=== PATIENT | female | born 1990 | race Caucasian/White ===

== ENCOUNTER 2018-01-22 17:23 | Emergency (ER) | payer MEDICAID, SELFPAY ==
[2018-01-22 17:24] VITALS: BP 144/88; PULSE 130; RESP 18; TEMP 37.3; O2SAT 100; BMI 27.1
[2018-01-22] MEDS: Ondansetron 4 MG/2 ML Vial IV (20:03)
[2018-01-22] MEDS: Dicyclomine 10 MG Capsule 20 MG PO (20:03)
[2018-01-22 20:39] LABS: Absolute Lymphocyte Count 2.53 X10^3/ul (0.83-4.51); Absolute Neutrophil Count 8.5 X10^3/uL (2.0-7.7); Basophil# 0.02 X10^3/uL; Basophil% 0.2 % (0-1); Eosinophil# 0.22 X10^3/uL; Eosinophils% 1.7 % (0-5); Hematocrit 41.9 % (37-47); Hemoglobin 13.6 g/dl (12.0-15.0); Lymphocyte # 2.53 X10^3/ul (4.0); Lymphocyte % 20.1 % (19-41); Mean Corp Hgb Conc 32.5 g/gl (32-36); Mean Corpuscular Hgb 30.5 pg (27.0-32.0); Mean Corpuscular Volume 93.9 fL (81-99); Mean Platelet Vol. 10.2 fl (6.2-12.0); Monocyte# 1.26 X10^3/uL; Neutrophil # 8.54 X10^3/uL (2.7-7.7); Neutrophil % 67.8 % (47-70); Platelet Count 247 K/mm3 (150-450); RBC Distribution Width CV 12.6 % (11.6-14.6); RBC Distribution Width SD 42.9 fl (35.1-43.9); Red Blood Count 4.46 M/mm3 (4.2-5.4); White Blood Count 12.6 K/mm3 (4.4-11.0)
[2018-01-22 20:41] LABS: POSITIVE COUNT NO; POSITIVE DIFFERENTIAL NO; POSITIVE MORPHOLOGY NO
[2018-01-22 20:46] LABS: AST(SGOT) 8 U/L (15-37); Alanine Aminotransfer ALT/SGPT 13 U/L (13-56); Albumin, Serum 3.6 g/dL (3.2-5.0); Alkaline Phosphatase 50 U/L (45-117); Bilirubin, Direct 0.09 mg/dL (0.00-0.30); Globulin 3.9 g/dL (2.2-4.2); Lipase 157 U/L (73-393); Protein, Total 7.5 g/dL (6.4-8.2)
[2018-01-22 20:50] LABS: Pregnancy, Serum, hCG Quali. NEGATIVE Negative (0-9 Nonpreg)
--- NOTE | 2018-01-22 21:12 | ED.DCSUM_ITS ---
- ER Visit Summary Date of Service: 01/22/18 Chief Complaint: My liver hurts History of Present Illness: The patient is a 27 F with right upper quadrant pain and states her liver hurts. Pain is been constant for 3 weeks and described as sharp. She denies food intolerance. She denies shortness of breath, difficulty breathing, cough or pleuritic chest pain. She denies any chest discomfort of any type, palpitations or rapid heart rate. She denies orthopnea or PND. She denies leg pain, swelling or discoloration. She denies history of biliary disease. She denies dysuria, frequency, urgency or hematuria. She denies any history of trauma. She denies rash or any skin lesions. She complains of subjective fever. She denies chills or night sweats. She did have an ectopic November 25. She was informed to refrain from sexual activity for 6-8 weeks, which she did not. She does not use any form of control. Review of systems otherwise negative, please read written note. Physical Examination: Blood pressure is 144/88. Heart rate is 130. She appears in no distress. Head is atraumatic normocephalic. Pupils are equal round reactive. Extraocular muscles are intact. TMs are pearly white with landmarks noted. Nares patent with no drainage. Posterior pharynx without erythema or exudate. Uvula is midline. There is no dysphonia or dysphasia. Trachea is midline. There is no stridor with auscultation of the neck. Heart is regular without murmur, gallop or rub. S1 and S2 are normal. Lungs are clear to auscultation with good movement of air bilaterally. Abdomen is remarkable for tenderness right upper quadrant without distraction. She reported discomfort when I placed my stethoscope on her abdomen. There are no skin lesions to suggest herpes varicella-zoster. She has no CVA tenderness noted. There is no evidence of umbilical or inguinal hernia. There is no asymmetry, swelling, discoloration, leg vein distention, palpable cords or tenderness along the distribution of the deep venous system. Neuro exam is nonfocal. Test Results: Lantus 12.8 thousand with no shift. Hepatic and lipase are normal. Serum test was negative. Emergency Department Course and Treatment: Since patient complains of pain right upper quadrant hepatic, lipase and CBC was obtained. Because she is sexually active and is not using for control test was obtained. Treatment Plan: Patient's workup is negative and she appears in no distress and has pain out of proportion to placement of my stethoscope on her abdomen plan is to discharge. Disposition: To home Impression:/Acute/subacute right upper quadrant abdominal pain unknown etiology Sinus tachycardia triage This note was generated with [employer] dictation software. It may contain incorrect words, spelling, and punctuation that were not noted in review of the chart prior to signing ED Disposition - Plan for ED Patient: Disposition: Home or Assisted Living Chief Complaint: General Illness Instructions: ED Abdominal Pain Unkn Cause Referrals: Edyta Hussein [Primary Care Provider] - 3-5 Days if not improving
[2018-01-22 21:28] VITALS: BP 126/78; PULSE 96; O2SAT 100
[2018-01-22 21:29] VITALS: BP 126/78; PULSE 97; O2SAT 99
== END 2018-01-22 21:31 | disposition home or self-care (01) ==
PROVIDERS: Emergency Provider Emergency Medicine
DX: R10.11 Right upper quadrant pain (principal); R00.0 Tachycardia, unspecified; R11.0 Nausea; Z87.59 Personal history of other complications of pregnancy, childbirth and the puerperium; Z72.0 Tobacco use
CPT/HCPCS: 80076; 83690; 84703; 85025; 96374; 99285; A4216; J2405

== ENCOUNTER 2018-08-03 10:50 | Emergency (ER) | payer MEDICAID, SELFPAY ==
[2018-08-03 10:51] VITALS: BP 111/76; PULSE 103; RESP 18; TEMP 36.6; O2SAT 98; BMI 23.6
--- NOTE | 2018-08-03 11:04 | EKG12_ITS ---
Test Reason : SOB Blood Pressure : / mmHG Vent. Rate : 085 BPM Atrial Rate : 085 BPM P-R Int : 128 ms QRS Dur : 090 ms QT Int : 382 ms P-R-T Axes : 073 076 065 degrees QTc Int : 454 ms Normal sinus rhythm with sinus arrhythmia Normal ECG Confirmed by NEYMAR JOHNSON, CAITIE ([id number]), editor book ODELL BRISENO ([id number]) on 08/06/2018 2:58:53 PM Referred By: MARIFER Confirmed By:CAITIE BLACKMON MD
--- NOTE | 2018-08-03 11:04 | RAD_ITS ---
STUDY: X-RAY CHEST REASON FOR EXAM: Female, 28 years old. Cough, congestion, ear pain, pain with breathing, body aches. TECHNIQUE: PA and lateral chest COMPARISON: None. FINDINGS: The lungs are clear and expanded. Normal cardiomediastinal silhouette, josh and pleural margins. No acute osseous or upper abdominal process. RAD/Chest PA and Lateral IMPRESSION: No acute cardiopulmonary process. No convincing evidence of acute pneumonia. Electronically Signed: Patricio Oliver, at 11:59 EDT Tel , Service support ,
[2018-08-03 11:11] VITALS: PULSE 101; RESP 18
[2018-08-03] MEDS: Ipratropium/Albuterol Sulfate 3 ML AMPUL.NEB INHALATION (11:11)
[2018-08-03] MEDS: 0.9% Normal Saline 1,000 ML 999 ML IV (11:27)
[2018-08-03] MEDS: MethylPREDNISolone 125 MG/2 ML Vial IV (11:27)
[2018-08-03] MEDS: Ketorolac 30 MG/ML Syringe IV (11:27)
[2018-08-03 11:28] VITALS: O2SAT 100
[2018-08-03 11:42] LABS: Absolute Lymphocyte Count 2.61 X10^3/ul (0.83-4.51); Absolute Neutrophil Count 4.1 X10^3/uL (2.0-7.7); Basophil# 0.01 X10^3/uL; Basophil% 0.1 % (0-1); Eosinophil# 0.12 X10^3/uL; Eosinophils% 1.6 % (0-5); Hematocrit 41.3 % (37-47); Lymphocyte # 2.61 X10^3/ul (4.0); Lymphocyte % 35.3 % (19-41); Mean Corp Hgb Conc 33.9 g/gl (32-36); Mean Corpuscular Hgb 31.2 pg (27.0-32.0); Mean Platelet Vol. 10.1 fl (6.2-12.0); Monocyte# 0.51 X10^3/uL; Monocyte% 6.9 % (0-10); Neutrophil # 4.13 X10^3/uL (2.7-7.7); POSITIVE COUNT NO; POSITIVE DIFFERENTIAL NO; POSITIVE MORPHOLOGY NO; Platelet Count 309 K/mm3 (150-450); RBC Distribution Width CV 11.6 % (11.6-14.6); RBC Distribution Width SD 39.1 fl (35.1-43.9); Red Blood Count 4.49 M/mm3 (4.2-5.4); White Blood Count 7.4 K/mm3 (4.4-11.0)
[2018-08-03] MEDS: Acetaminophen 500 MG Tablet 1000 MG PO (12:16)
--- NOTE | 2018-08-03 12:51 | ED.DCSUM_ITS ---
- ER Visit Summary Date of Service: 08/03/18 Chief Complaint: Cough and shortness of breath History of Present Illness: The patient is a 28 F who goes to the [facility]. She reports that he had a cough that began approximate 1 week ago. Is productive green sputum without blood. She reports that she was placed on Augmentin 5 days ago and has not gotten relief from this. She was also sent home with an inhaler. She reports that this does help with her wheezing and shortness of breath, but this is transient. Patient complains of subjective fever and chills. She denies sore throat. She reports she has chest pain with coughing only. She reports is been nausea and vomited 5 times altogether. She has not vomited today. No diarrhea. No abdominal pain. She reports that she has a headache that stated 10 severity. She does have a history of similar headaches. Physical Examination: Vitals: Stable. Afebrile. General: Well-nourished and well-developed. Head: Normocephalic atraumatic. HEENT: Posterior oropharyngeal erythema. No tonsillar exudate or enlargement. No peritonsillar abscess. Neck: Supple, no lymphadenopathy. No JVD. Nontender. Cardiovascular: Regular rate and rhythm. No murmurs. Respiratory: No respiratory distress. Mild wheezing bilaterally with decreased air movement. Abdominal: Soft, nontender, nondistended, normal bowel sounds. No guarding, rebound, or peritoneal signs. Back: Nontender. Extremities: Nontender, no edema. Skin: Normal color, no rash. Neurologic: Alert and oriented ?3. Cranial nerves II through XII are intact. Normal strength and sensation. Psych: Normal affect. Test Results: Chest x-ray is normal. EKG is sinus at [address] changes. CBC is normal. Chem-7 is more for sodium 135 and chloride 108. Parents test is negative. Emergency Department Course and Treatment: Patient was treated albuterol Atrovent aerosols. She was given a dose of Solu-Medrol and Toradol IV. She was given Tylenol p.o. She is resting comfortably. Treatment Plan: Patient will be discharged to 5-day burst of prednisone. Instructed to follow-up the vital instructions clinic in 3-5 days if not improving. Return to the emergency department for any worsening symptoms. Disposition: To home in improved and stable condition. Impression: 1. URI. 2. Bronchospasm. 3. Tobacco abuse. This note was generated with [employer] dictation software. It may contain incorrect words, spelling, and punctuation that were not noted in review of the chart prior to signing ED Disposition - Plan for ED Patient: Chief Complaint: Shortness of Breath Instructions: ED Upper Resp Infec Abx Tx Prescriptions: Prednisone [Deltasone] 40 mg PO DAILY #10 tablet Referrals: Edyta Hussein [Primary Care Provider] - 1-2 Days if not improving
[2018-08-03 12:57] LABS: Anion Gap 5 (5-15); BUN 11 mg/dL (7-18); BUN/Creat Ratio 16.5 RATIO (10-20); Calcium,Total 8.8 mg/dL (8.5-10.1); Chloride 102 mmol/L (98-107); Creatinine, Serum 0.67 mg/dL (0.55-1.02); EST Glomerular Filtration Rate 111 mL/min (>60); Est Glom Filt Rate - Afr Amer 135 mL/min (>60); Estimated Creatinine Clearance 88.99 ml/min; Glucose 108 mg/dL (74-106); Potassium 4.1 mmol/L (3.5-5.1); Sodium Level 135 mmol/L (136-145)
[2018-08-03 13:23] LABS: Pregnancy, Serum, hCG Quali. NEGATIVE Negative (0-9 Nonpreg)
[2018-08-03 13:30] VITALS: PULSE 86; RESP 16; O2SAT 95
[2018-08-03] MEDS: predniSONE 20 MG Tablet 40 MG PO (13:44)
[2018-08-03 13:47] VITALS: BP 101/69; PULSE 91; RESP 16; O2SAT 98
== END 2018-08-03 13:48 | disposition home or self-care (01) ==
LOC: ED 11:08
PROVIDERS: Emergency Provider Emergency Medicine
DX: J06.9 Acute upper respiratory infection, unspecified (principal); J98.01 Acute bronchospasm; F17.200 Nicotine dependence, unspecified, uncomplicated; R11.2 Nausea with vomiting, unspecified
CPT/HCPCS: 71046; 80048; 84703; 85025; 93005; 94640; 96361; 96374; 96375; 99285; J7030; A4216

== ENCOUNTER 2025-01-16 05:42 | Day surgery (SDC) | payer BC, SELFPAY ==
--- NOTE | 2025-01-09 17:39 | HP.PCM_ITS ---
History and Physical Date of Admission: 01/16/25 HPI: The patient is a 34 year old female presenting for pre-operative visit. She is scheduled for LEEP, for HPV 16 and KAREN 3 on 01/16/25. Procedure discussed along with risks, benefits and complications. Other alternatives discussed for management. Consent form signed? Yes. ? ? PAST MEDICAL HISTORY PAST MEDICAL HISTORYDiagnosisDate?Hepatitis A003/24/2019?Hepatitis C003/23/2019?Hepatitis-C??HGSIL (high grade squamous intraepithelial lesion) on Pap smear of [id number]/16/2024?Pap smear abnormality of cervix/human papillomavirus (HPV) [id number]/11/2024 ? ? PAST SURGICAL HISTORY PAST SURGICAL HISTORYProcedureLateralityDate? DELIVERY ONLY?2006?DENTAL SURGERY HX?2012?tubes placed due to an abscess tooth?OB-C SECTION INSTRUMENT TRAY???TREAT ECTOPIC PREG,ABD PREG?2007 ? ? ? CURRENT MEDICATIONS Current Outpatient MedicationsMedicationSigDispenseRefill?lamoTRIgine (LAMICTAL) 25 mg tabletTake 1 tablet by mouth once daily.30 tablet1?citalopram (CELEXA) 20 mg tabletTake 1 tablet by mouth once daily.30 tablet2?ALPRAZolam (XANAX) 0.25 mg tabletTake 1 tablet by mouth once daily as needed for up to 30 days.10 tablet0?QUEtiapine (SEROQUEL) 100 mg tabletTake 1 tablet by mouth daily at bedtime.30 tablet2?No current facility-administered medications for this visit. ? ? ALLERGIES: Depakote [Divalproex], Doxycycline, and Trazodone ? PERSONAL HISTORY: SOCIAL HISTORY Social History?Tobacco Use?Smoking status:Former??Current packs/day:0.00??Average packs/day:0.5 packs/day for 10.0 years (5.0 ttl pk- yrs)??Types:Cigarettes??Start date:2009??Quit date:2019??Years since quittin.1?Smokeless tobacco:Never?Tobacco comments:??Vapes currentlyVaping Use?Vaping status:Some Days?Substances:NicotineSubstance Use Topics?Alcohol use:No?Drug use:Not Currently??Types:Heroin??Comment: last used September 2018 ? FAMILY HISTORY: FAMILY HISTORY FAMILY HISTORY ProblemRelationAge of Onset?Cervical CancerMother?? early 20's ?HypertensionMother??HypertensionMaternal Grandmother??Cervical CancerMaternal Grandmother??Breast CancerPaternal Grandmother??other (lymphatic cancer)Paternal Grandmother??Heart AttackPaternal Grandfather? ? ? REVIEW OF SYMPTOMS: ? PHYSICAL EXAMINATION: ? VITALS: Blood pressure 96/58, pulse 68, resp. rate 16, height 154.9 cm (5' 1), weight 59.4 kg (131 lb), last menstrual period 12/19/2024. ? GENERAL: The patient is well nourished, well hydrated in no acute distress. , The patient is oriented to time, place, and person. NECK: Supple. No lynphadenopathy, normal thyroid, no thyromegaly. LUNGS: Clear to auscultation bilaterally. no wheezes, rhonchi or rales HEART: Regular rate and rhythm, Normal heart sounds, and No murmurs or gallops ? IMPRESSION: Assessment & Plan High grade squamous intraepithelial lesion (HGSIL), grade 3 KAREN, on biopsy of cervix ? PLAN: The risks/benefits/alternatives and personal involved for the planned LEEP were reviewed with the patient. Her questions were answered to her satisfaction and she desires to proceed. Consent was signed. I reviewed with her postop instructions and expectations. ? ? 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
[2025-01-16] VITALS (8 sets, daily range): BP systolic 109–131; BP diastolic 72–84; PULSE 58–78; RESP 16–18; TEMP 36.6–36.7; O2SAT 99–100; BMI 26.5
[2025-01-16 06:26] LABS: Internal QC Validated? YES +Cl - CLEAR BKGD; Pregnancy, Urine Negative Negative
[2025-01-16] MEDS: Acetaminophen 500 MG Tablet 1000 MG PO (06:34)
[2025-01-16] MEDS: Ketorolac 30 MG/ML Syringe IV (06:34)
[2025-01-16 06:47] LABS: Hematocrit 38.3 % (37-47); Mean Corp Hgb Conc 33.9 g/dL (32-36); Mean Corpuscular Hgb 30.6 pg (27.0-32.0); Mean Corpuscular Volume 90.1 fL (81-99); Mean Platelet Vol. 9.6 fl (6.2-12.0); Platelet Count 264 K/mm3 (150-450); RBC Distribution Width CV 11.7 % (11.6-14.6); Red Blood Count 4.25 M/mm3 (4.2-5.4); White Blood Count 6.7 K/mm3 (4.4-11.0)
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
--- NOTE | 2025-01-16 07:30 | CONE_PTH ---
PATIENT: MARYCRUZ HUFF [place] [facility] [id number] AGE/SX: 34/F ROOM: RE01/16/[address]: Dr. Erika Bowen MD : 1990 BED: DIS: 01/16/2025 SPEC #: [id number] RECD: 01/16/25 11:27 STATUS: DIEGO RERustam #: [id number] CHRISTA: 01/16/25 07:[address]: Erika Bowen DEPT: SURGICAL PATHOLOGY RECD BY: Bruce Sparrow ENTERED: 01/16/25 11:29 SP TYPE: Leep Cone MATTHEW DR: Dr. Karina Browning, DO Tissues: A - UTERINE CERVIX LEEP B - UTERINE CERVIX LEEP C - UTERINE CERVIX LEEP D - Endocervical Procedures: Surgery Specimen Level IV Surgery Specimen Level V HEADER OPERATION: Leep cone PRE-OP DIAGNOSIS: Human papillomavirus (HPV) type 16 DNA detected in cervical specimen, KAREN III (cervical intraepithelial neoplasia grade III) with severe dysplasia TISSUE SUBMITTED: A- Anterior lip of cervix, B- Posterior lip of cervix, C- Endo cervix, D- Endocervical curettings MICROSCOPIC DIAGNOSIS A: CERVIX, ANTERIOR LIP, LEEP: * Severe dysplasia (high grade LOREN, KAREN 3), surgical margins free. B: CERVIX, POSTERIOR LIP, LEEP: * Squamous metaplasia, mild active chronic inflammation. * Negative for dysplasia. C: ENDOCERVIX, LEEP: * Negative for dysplasia. D: ENDOCERVIX, CURETTAGE: * Fragments of secretory endometrium. * No endocervical tissue seen in this section. MICROSCOPIC DESCRIPTION Slides are reviewed. GROSS DESCRIPTION A: Received in fixative is one container labeled with the patient's name and designated Anterior lip of cervix. The specimen consists of 2 unoriented fragments of pink-finley cervical tissue measuring 1 x 0.8 x 0.3 cm and 3 x 2 x 1.5 cm respectively. The mucosal surface of the smaller fragment is smooth and white and the mucosal surface of the larger fragment is entirely pink and granular. Endocervical margin cannot be discerned grossly. The margins of both fragments are inked entirely blue. TE4 Cassette summary: A1- smaller fragment and pieces of larger fragment. A2-A4- remainder of larger fragment. B: Received in fixative is one container labeled with the patient's name and designated Posterior lip of cervix. The specimen consists of 2 unoriented fragments of shiny pink-white cervical tissue measuring 1.5 x 1.5 x 0.3 cm and 2.5 x 1.5 x 0.8 cm respectively. The mucosal surfaces of both fragments are slightly bumpy and granular. All margins are inked blue. TE3 C: Received in fixative is one container labeled with the patient's name and designated Endocervix. The specimen consists of 1 roughly rectangular shaped segment of pink-cunningham soft tissue measuring 2 x 1.3 x 1.2 cm. The specimen is unoriented. All margins are inked blue. TE2 D: Received in fixative is one container labeled with the patient's name and designated Endocervical curetting. The specimen consists of a small amount of cunningham tissue received on a piece of gauze. The tissue has an aggregate measurement of 2.5 x 0.8 x 0.2 cm. It is scraped off and totally submitted in 1 cassette. TE1. CPT:13115 x 4
--- NOTE | 2025-01-16 07:36 | DCINST_ITS ---
Discharge Instructions Diet Discharge Diet: No restrictions DC O2, CPAP, BIPAP needs Home O2 Discharge instructions: No Dressing / Incision Return to work on:: 01/18/25 May resume sexual activity in: 2 weeks Lifting Restrictions: none Dressing / Incision Call your doctor if your incision/area has: Sudden Increased Bleeding and Foul Smelling Discharge Call your doctor if you observe: Fever of 101 or Higher and Using more than 1 pad per hour (for 2 hrs in a row) Additional Dressing/Incision Instructions:: Take Acetaminophen or Iburpofen 600 mg as needed for pain Follow Up Care Please Follow Up With: Erika Bowen MD When: 3-4 weeks or as needed. Call [phone] or send a [employer] messageto make an appointment or with any concerns. Test Results: Test results from this visit will be discussed in further detail at your follow- up appointment, if applicable. Discharge Plan Admission Primary Reason for Your Visit: LEEP of the cervix Attending Provider: Erika Bowen Primary Care Provider: Karina Browning Instructions Print Language: Slovak Discharge Orders/Prescriptions Prescriptions: No Action quetiapine 100 mg tablet 100 mg PO QHS lamotrigine [Lamictal] 25 mg tablet 25 mg PO DAILY citalopram 10 mg tablet 20 mg PO DAILY Patient Comments: TAKE 1 TABLET BY MOUTH ONCE DAILY FOR 7 DAYS, THEN TAKE 2 TABLETS ONCE DAILY FOR 21 DAYS [facility] - Disposition Disposition (needs filled in before D/C Order can be placed): Home, Self Care
[2025-01-16] MEDS: Iodine/Potassium Iodide 14ML Bottle 1 DRP TOPICAL (07:41)
[2025-01-16] MEDS: Lidocaine 1%/Epi 1:200 (30ml) 30 ML AMPUL (07:41)
[2025-01-16] MEDS: FERRIC SUBSULFATE 8 GM SOLN (07:48)
--- NOTE | 2025-01-16 08:13 | OP.PCM_ITS ---
Problems Associated Problem List Diagnoses (1) KAREN III (cervical intraepithelial neoplasia grade III) with severe dysplasia: (2) Human papillomavirus (HPV) type 16 DNA detected in cervical specimen: Operative Report (Standard) Operative Information Date of Procedure: 01/16/25 Pre-Operative Diagnosis: High risk HPV, high grade squamous intraepithelial lesion Post-Operative Diagnosis: same Surgery/Procedure Performed: LEEP of the cervix project management intern: No Type of Anesthesia: MAC/Supplemental/Local RN Documented Start/Stop Times: Operation Date: 01/16/25 07:30 Case Time Into Pre-Op 01/16/25 05:57 Out of Pre-Op 01/16/25 07:25 Procedure Start Time: 07:41 Procedure Stop Time: 08:10 Select all DRAINS/GRAFTS/IMPLANTS that apply: None Special Medications: none Estimated Blood Loss: 30 Fluids Replaced: 0 Specimen collected: Yes Description of specimen(s) removed: Anterior lip of the cervix, posterior lip of the cervix, endocervix, endocervical curettings Description of surgery: The patient was taken to the operating room where she was prepped and draped in a dorsal lithotomy position. The LEEP speculum was placed in the vagina. A paracervical block was performed with 1% Xylocaine with 1-100,000 epinephrine solution. The ectocervix was amputated with the 8 mm loop the anterior lip of the cervix was removed separately from the posterior lip. A small loop was then used to do a deeper sweep of the endocervix. An endocervical curettage was then performed. The specimens were handed off and labeled and sent to pathology. Hemostasis of the cervix was obtained with ball cautery. A single 0 Vicryl [id number] suture was needed at 9:00 to obtain hemostasis. Some Monsel solution was placed over the cauterized cervix. Hemostasis was assured. The instruments were removed from the vagina. A vaginal sweep was completed by me. Sponge and needle counts were correct. Surgical Findings: normal cervix and vagina Complications Complications: No Admit VTE Documentation VTE Present on Admission: No VTE Mechan Device Prophylaxis: SCD's VTE Pharm Prophylaxis ordered?: No
--- NOTE | 2025-01-16 08:20 | PCM.POST.ANE ---
Anesthesia: Postop Eval I Current Vital Signs Temperature: 98.1 F Pulse Rate: 78 Blood Pressure: 119/74 Respiratory Rate: 16 Pulse Ox: 100 Assessment Airway patent: Yes Spontaneous unlabored respirations: Yes Mental status: Awake and Calm nausea: No Vomiting: No Anesthesia Complication: No Fluid Hydration Crystalloid volume administer (ml): 36 Total IV fluid infused: 36 Progress Note Anesthesia document: Postop Eval 1 completed: Yes
[2025-01-16] MEDS: oxyCODONE 5 MG Tablet PO (09:02)
--- NOTE | 2025-01-16 11:23 | POSTOPAN2_ITS ---
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.GDOTT Anesthesia Postop Eval I: Fluid Summary Crystalloid volume administer 36 01/16/25 08:20 PV DESIGN AND INSTALLATION TECHNICIAN.GDOTT (ml) Colloids volume administered ( ml) Blood Product volume administered (ml) Total IV fluid infused 36 01/16/25 08:20 PV DESIGN AND INSTALLATION TECHNICIAN.GDOTT Anesthesia Postop Eval I: Summary Notes Anesthesia Complication No 01/16/25 08:20 PV DES[employer] AND INSTALLATION TECHNICIAN.GDOTT Anesthesia Complication Comment: Post-operative progress note Anesthesia: Postop Eval II Evaluation Mental status: Awake Pain Level: 0 nausea: No Vomiting: No Complications Anesthesia Complication: No
--- NOTE | 2025-01-16 11:23 | PCM.POSTANE2 ---
Anesthesia Postop Eval I Sum Postop Eval Completion status Anesthesia document: Postop Eval 1 completed: Yes Anesthesia Postop Eval I Summary Anesthesia Postop Eval I Summary: Anesthesia Postop Eval I: Assessment Summary Airway patent Yes 01/16/25 08:20 [employer].GDOTT Spontaneous unlabored Yes 01/16/25 08:20 [employer].GDOTT respirations Mental status Awake,Calm 01/16/25 08:20 [employer].GDOTT nausea No 01/16/25 08:20 [employer].GDOTT Vomiting No 01/16/25 08:20 [employer].GDOTT Anesthesia Postop Eval I: Fluid Summary Crystalloid volume administer 36 01/16/25 08:20 [employer].GDOTT (ml) Colloids volume administered ( ml) Blood Product volume administered (ml) Total IV fluid infused 36 01/16/25 08:20 [employer].GDOTT Anesthesia Postop Eval I: Summary Notes Anesthesia Complication No 01/16/25 08:20 [employer].GDOTT Anesthesia Complication Comment: Post-operative progress note Anesthesia: Postop Eval II Evaluation Mental status: Awake Pain Level: 0 nausea: No Vomiting: No Complications Anesthesia Complication: No
== END 2025-01-16 09:10 | disposition home or self-care (01) ==
LOC: SDC 05:43 → AC 05:45
PROVIDERS: PCP Family Medicine; Referring Provider Obstetrics & Gynecology; Visit Provider Obstetrics & Gynecology
PROC: 0UBC7ZZ Excision of Cervix, Via Natural or Artificial Opening (ICD-10-PCS; CPT 57522; principal; 2025-01-16 07:15)
DX: D06.9 Carcinoma in situ of cervix, unspecified (principal); F17.210 Nicotine dependence, cigarettes, uncomplicated; Z79.899 Other long term (current) drug therapy; Z86.73 Personal history of transient ischemic attack (TIA), and cerebral infarction without residual deficits
CPT/HCPCS: 57522; 00940; 81025; 85027; 88305; 88307; A4216; J2405